=== PATIENT | male | born 1945 | race Caucasian/White ===

== ENCOUNTER → 2016-07-01 | Outpatient (CLI) | payer BC, MEDICARE, MEDICAID | END | disposition home or self-care (01) | LOC: PCVCCLINIC 14:06 | PROVIDERS: ATTEND Internal Medicine | DX: I25.5 Ischemic cardiomyopathy (principal); I25.10 Atherosclerotic heart disease of native coronary artery without angina pectoris; I10 Essential (primary) hypertension; E78.00 Pure hypercholesterolemia, unspecified; F17.200 Nicotine dependence, unspecified, uncomplicated; E11.9 Type 2 diabetes mellitus without complications | CPT/HCPCS: 93005; G0463 ==

== ENCOUNTER → 2017-01-12 | Outpatient (CLI) | payer BC, MEDICARE, MEDICAID | END | disposition home or self-care (01) | LOC: PCVCCLINIC 10:41 | PROVIDERS: ATTEND Internal Medicine | DX: I25.10 Atherosclerotic heart disease of native coronary artery without angina pectoris (principal); I25.5 Ischemic cardiomyopathy; E78.5 Hyperlipidemia, unspecified; I10 Essential (primary) hypertension; I65.23 Occlusion and stenosis of bilateral carotid arteries; R94.31 Abnormal electrocardiogram [ECG] [EKG]; E11.9 Type 2 diabetes mellitus without complications; F17.210 Nicotine dependence, cigarettes, uncomplicated; Z79.82 Long term (current) use of aspirin; Z79.899 Other long term (current) drug therapy | CPT/HCPCS: 80061; 93005; G0463 ==

== ENCOUNTER → 2017-07-13 | Outpatient (CLI) | payer BC, MEDICARE, MEDICAID ==
[~2017-07-13] MED LIST: REGADENOSON 0.4 MG/5 ML DISP.SYRIN. IV
== END | disposition home or self-care (01) ==
LOC: PCVCIMAG 07:59
DX: I65.23 Occlusion and stenosis of bilateral carotid arteries (principal); I25.10 Atherosclerotic heart disease of native coronary artery without angina pectoris; I25.5 Ischemic cardiomyopathy; I10 Essential (primary) hypertension; E78.5 Hyperlipidemia, unspecified; E11.9 Type 2 diabetes mellitus without complications; F17.210 Nicotine dependence, cigarettes, uncomplicated; R06.00 Dyspnea, unspecified; I42.9 Cardiomyopathy, unspecified; Z82.49 Family history of ischemic heart disease and other diseases of the circulatory system
CPT/HCPCS: 78452; 80061; 93005; 93017; 93880; A9500; J2785

== ENCOUNTER → 2018-01-11 | Outpatient (CLI) | payer BC, MEDICARE, MEDICAID | END | disposition home or self-care (01) | LOC: PCVCCLINIC 14:00 | PROVIDERS: ATTEND Internal Medicine | DX: I25.10 Atherosclerotic heart disease of native coronary artery without angina pectoris (principal); I25.5 Ischemic cardiomyopathy; E78.5 Hyperlipidemia, unspecified; I10 Essential (primary) hypertension; I65.23 Occlusion and stenosis of bilateral carotid arteries; F17.210 Nicotine dependence, cigarettes, uncomplicated; E11.9 Type 2 diabetes mellitus without complications; Z79.82 Long term (current) use of aspirin | CPT/HCPCS: 80061; 93005; G0463 ==

== ENCOUNTER → 2018-07-12 | Outpatient (CLI) | payer BC, MEDICARE, MEDICAID ==
--- NOTE | 2018-07-12 11:06 | PCVCIMAG ---
APPROVED REPORT Indications Stenosis Risk Factors Hypertension: Hyperlipidemia Diabetes, CAD Doppler Spectral Velocity Analysis PSV / EDVPSV / EDV ECA (R) 122 / 24 cm/sECA (L) 83 / 14 cm/s dICA (R) 67 / 26 cm/sdICA (L) 75 / 19 cm/s Vale (R) 86 / 28 cm/smICA (L) 88 / 24 cm/s pICA (R) 78 / 20 cm/spICA (L) 85 / 25 cm/s Bulb (R) 75 / 19 cm/sBulb (L) 66 / 16 cm/s dCCA (R) 60 / 16 cm/sdCCA (L) 88 / 16 cm/s mCCA (R) 68 / 16 cm/smCCA (L) 80 / 16 cm/s Vert (R) 48 / 12 cm/sVert (L) 37 / 6 cm/s ICA/CCA 1.00 ICA/CCA 1.27 Basic Measurements Blood Pressure: Pulses: Right Left RightLeft Brachial(Sitting) 124/12reEl790/76mmHgTemporal Real Time B-Mode Imaging Vert. (R)AntegradeVert. (L)Antegrade Findings The right carotid bulb has mild plaque. The right proximal internal carotid artery shows no significant stenosis. The right common carotid artery shows no significant stenosis. The right external carotid artery shows <50% stenosis. The left carotid bulb has moderate plaque. The left proximal internal carotid artery shows <40% stenosis. The left common carotid artery shows <40% stenosis. The left external carotid artery shows no significant stenosis. Conclusion 1. Right internal carotid artery plaquing without significant stenosis. 2. Left internal carotid artery stenosis (<40%) 3. Antegrade vertebral flow
== END | disposition home or self-care (01) ==
LOC: PCVCIMAG 09:17
PROVIDERS: ATTEND Internal Medicine
DX: I65.23 Occlusion and stenosis of bilateral carotid arteries (principal); E11.9 Type 2 diabetes mellitus without complications; E78.5 Hyperlipidemia, unspecified; I10 Essential (primary) hypertension
CPT/HCPCS: 93880